=== PATIENT | female | born 1965 | race African-American/Black ===

== ENCOUNTER 2016-10-09 17:44 | Emergency (ER) | payer MEDICAID, OTHER ==
[~2016-10-09] VITALS: Ht 170.2 cm; Wt 59.0 kg
[2016-10-09] MEDS ORDERED: FLUORESCEIN SODIUM 1MG/STRIP OP ONE (22:15)
[2016-10-09] MEDS ORDERED: TETRACAINE 0.5% OPHTH DROPS 4ML OP ONE (22:15)
[2016-10-09] MEDS ORDERED: TETANUS, DIPHTHERIA, PERTUSSIS VAC/PF 0.5ML (>7YR OLD) IM ONE (22:15)
[2016-10-09] MEDS ORDERED: KETOROLAC 30MG/ML VIAL IM ONE (22:45)
[2016-10-09] MEDS ORDERED: METOCLOPRAMIDE HCL 10MG TABLET PO ONE (22:45)
[2016-10-09 23:30] VITALS: BP 184/94
== END 2016-10-10 00:02 | disposition home or self-care (01) ==
LOC: ER 22:31
DX: T15.91XA Foreign body on external eye, part unspecified, right eye, initial encounter (principal); H53.8 Other visual disturbances; X58.XXXA Exposure to other specified factors, initial encounter; Y93.89 Activity, other specified; Y92.89 Other specified places as the place of occurrence of the external cause; I10 Essential (primary) hypertension; Z23 Encounter for immunization; Z88.0 Allergy status to penicillin
CPT/HCPCS: 65205; 90471; 90715; 96372; 99284; J1885; J7040; J8597

== ENCOUNTER 2017-07-14 08:15 | Emergency (ER) | payer OTHER ==
[~2017-07-14] VITALS: Ht 165.1 cm; Wt 60.0 kg
[2017-07-14] MEDS ORDERED: ASPIRIN 325MG EC TABLET PO ONE (09:00)
[2017-07-14 09:14] LABS: BASOPHILS % 0.8 % (0.0-2.0); EOSINOPHILS % 0.1 % (0.0-5.0); HEMATOCRIT. 31.4 % (36.0-48.0); HEMOGLOBIN. 9.9 g/dL (12.0-16.0); LYMPHOCYTES % 15.1 % (20.0-50.0); MEAN CORPUSCULAR HEMOGLOBIN 24.5 pg (28.0-32.0); MEAN CORPUSCULAR VOLUME 77.4 fL (81.0-99.0); MEAN PLATELET VOLUME 9.1 fl (7.4-10.4); MONOCYTES % 8.8 % (2.0-8.0); NEUTROPHILS % 75.2 % (40.0-76.0); PLATELET 199 x1000/uL (130-400); RED BLOOD CELL COUNT 4.06 mill/uL (4.2-5.4); RED CELL DISTRIBUTION WIDTH 16.4 % (11.6-14.6)
[2017-07-14 09:23] LABS: PARTIAL THROMBOPLASTIN TIME 28.9 sec (23.4-31.0); PROTHROMBIN TIME 10.9 sec (9.4-11.6)
[2017-07-14 09:25] LABS: CHLORIDE 106 mEq/L (98-107)
[2017-07-14 09:31] LABS: TROPONIN I < 0.02 ng/mL (0.00-0.04)
[2017-07-14 11:09] LABS: KETONES URINE 2+ (NEGATIVE); LEUKOCYTE ESTERASE URINE NEGATIVE (NEGATIVE); NITRITE URINE NEGATIVE (NEGATIVE); OCCULT BLOOD URINE 3+ (NEGATIVE); PROTEIN URINE 2+ (NEGATIVE); SPECIFIC GRAVITY URINE 1.027 (1.005-1.030)
[2017-07-14 11:10] LABS: CLARITY URINE CLOUDY (CLEAR); COLOR URINE BLOODY (YELLOW)
[2017-07-14 11:18] LABS: *AMPHETAMINES SCREEN URINE NEGATIVE (NEGATIVE); *BARBITURATES SCREEN URINE NEGATIVE (NEGATIVE); *BENZODIAZEPINES SCREEN URINE NEGATIVE (NEGATIVE); *COCAINE SCREEN URINE NEGATIVE (NEGATIVE); CANNABINOID URINE SCREEN PRESUMTIVE POSITIVE (NEGATIVE); METHADONE URINE SCREEN NEGATIVE (NEGATIVE); OPIATES URINE SCREEN NEGATIVE (NEGATIVE); PHENCYCLIDINE URINE SCREEN NEGATIVE (NEGATIVE)
[2017-07-14] MEDS ORDERED: IBUPROFEN 400MG TABLET PO ONE (12:00)
[2017-07-14 12:27] VITALS: BP 146/79
== END 2017-07-14 12:31 | disposition home or self-care (01) ==
LOC: ER 08:15
DX: R09.89 Other specified symptoms and signs involving the circulatory and respiratory systems (principal); R10.12 Left upper quadrant pain; F12.10 Cannabis abuse, uncomplicated; D64.9 Anemia, unspecified; Z88.0 Allergy status to penicillin
CPT/HCPCS: 36415; 71045; 80053; 80305; 81003; 83690; 84484; 85025; 85610; 85730; 93005; 99285; Z7610

== ENCOUNTER 2019-09-20 12:32 | Emergency (ER) | payer OTHER ==
[~2019-09-20] VITALS: Ht 162.6 cm; Wt 60.0 kg
[2019-09-20] MEDS ORDERED: MORPHINE SULFATE 4 MG/ML CPJ (NOT FOR IM USE) IV STA (13:04)
[2019-09-20] MEDS ORDERED: SODIUM CHLORIDE 0.9% 1,000 ML IV ONE (13:04)
[2019-09-20] MEDS ORDERED: ONDANSETRON HCL 4MG/2ML INJ IV STA (13:04)
[2019-09-20 14:47] LABS: BASOPHILS % 0.7 % (0.0-2.0); EOSINOPHILS % 0.5 % (0.0-5.0); HEMATOCRIT. 38.2 % (36.0-48.0); HEMOGLOBIN. 12.6 g/dL (12.0-16.0); LYMPHOCYTES % 28.2 % (20.0-50.0); MEAN PLATELET VOLUME 10.1 fl (7.4-10.4); MONOCYTES % 5.5 % (2.0-8.0); NEUTROPHILS % 65.1 % (40.0-76.0); PLATELET 171 x1000/uL (130-400); RED BLOOD CELL COUNT 4.34 mill/uL (4.2-5.4); RED CELL DISTRIBUTION WIDTH 14.4 % (11.6-14.6)
[2019-09-20 14:53] LABS: CHLORIDE 112 mEq/L (98-107)
[2019-09-20 14:59] LABS: PARTIAL THROMBOPLASTIN TIME 30.3 sec (23.4-31.0); PROTHROMBIN TIME 10.9 sec (9.6-11.0)
[2019-09-20] MEDS ORDERED: MORPHINE SULFATE 4 MG/ML CPJ (NOT FOR IM USE) IV ONE (15:15)
[2019-09-20] MEDS ORDERED: ONDANSETRON HCL 4MG/2ML INJ IV ONE (17:45)
[2019-09-20 20:00] VITALS: BP 132/96
== END 2019-09-20 20:02 | disposition home or self-care (01) ==
LOC: ER 12:32
DX: S92.351A Displaced fracture of fifth metatarsal bone, right foot, initial encounter for closed fracture (principal); W01.0XXA Fall on same level from slipping, tripping and stumbling without subsequent striking against object, initial encounter; Y93.89 Activity, other specified; Y92.89 Other specified places as the place of occurrence of the external cause; Y99.8 Other external cause status; R07.89 Other chest pain; I10 Essential (primary) hypertension; I20.9 Angina pectoris, unspecified; Z88.0 Allergy status to penicillin
CPT/HCPCS: 36415; 71045; 73562; 73590; 73630; 80053; 84484; 85025; 85610; 85730; 93005; 96374; 96375; 96376; 99285; J2270; J2405; J7030; L1830; 29515